=== PATIENT | male | born 1955 | race Caucasian/White ===

== ENCOUNTER 2021-09-09 15:54 | Outpatient (CLI) | payer SELFPAY ==
[2021-09-09 17:03] LABS: SARS Covid-2 Antigen Negative (Negative)
== END 2021-09-09 15:55 | disposition home or self-care (01) ==
PROVIDERS: Visit Provider Emergency Medicine
DX: Z20.822 Contact with and (suspected) exposure to COVID-19 (principal)
CPT/HCPCS: 87426